=== PATIENT | female | born 1950 | race Caucasian/White ===

== ENCOUNTER 2016-11-23 10:34 | Outpatient (CLI) | payer MEDICARE, OTHER | END 2016-11-23 10:35 | disposition home or self-care (01) | DX: Z12.31 Encounter for screening mammogram for malignant neoplasm of breast (principal); Z80.3 Family history of malignant neoplasm of breast ==

== ENCOUNTER 2016-12-27 14:44 | Outpatient (CLI) | payer MEDICARE, OTHER | END 2016-12-27 14:45 | disposition home or self-care (01) | DX: E87.6 Hypokalemia (principal); R73.01 Impaired fasting glucose; I10 Essential (primary) hypertension; M35.3 Polymyalgia rheumatica ==

== ENCOUNTER 2017-11-04 08:00 | Outpatient (CLI) | payer MEDICARE, OTHER ==
[2017-11-04 18:58] LABS: BILIRUBIN,URINE NEGATIVE (NEGATIVE); GLUCOSE, URINE (UA) NEGATIVE (NEGATIVE); KETONES,URINE (UA) NEGATIVE (NEGATIVE); LEUKOCYTE ESTERASE, URINE TRACE (NEGATIVE); NITRITE,URINE NEGATIVE (NEGATIVE); OCCULT BLOOD,URINE NEGATIVE (NEGATIVE); PROTEIN,URINE NEGATIVE (NEGATIVE); UROBILINOGEN,URINE 0.2 (NORMAL) E.U./dL (NORMAL)
[2017-11-04 19:10] LABS: BACTERIA,URINE Few /HPF (None Seen); CLARITY,URINE CLEAR (CLEAR); RBC,URINE 0-5 /HPF (0-5); SQUAMOUS EPITHELIAL CELL,UR FEW Squamous (<= Few)
[2017-11-04 19:12] LABS: BASOPHILS % (AUTO) 0.2 %; EOSINOPHILS # (AUTO) 0.1 10^3/uL (0.0-0.7); EOSINOPHILS % (AUTO) 1.8 %; HGB - HEMOGLOBIN 14.9 g/dL (12.0-16.0); LYMPHOCYTES # (AUTO) 2.1 10^3/uL (1.5-3.5); LYMPHOCYTES % (AUTO) 26.5 %; MEAN CORPUSCULAR HEMOGLOBIN 29.9 pg (27.0-31.0); MEAN CORPUSCULAR HGB CONC 33.1 g/dL (32.0-36.0); MEAN CORPUSCULAR VOLUME 90.5 fL (81.0-99.0); MEAN PLATELET VOLUME 8.9 fL (7.9-10.8); MONOCYTES # (AUTO) 0.7 10^3/uL (0.0-1.0); MONOCYTES % (AUTO) 9.1 %; NEUTROPHILS # (AUTO) 4.8 10^3/uL (1.5-6.6); NEUTROPHILS % (AUTO) 62.4 %; PLT - PLATELET COUNT 262 10^3/uL (130-450); RED BLOOD COUNT 4.98 10^6/uL (4.20-5.40); RED CELL DISTRIBUTION WIDTH 13.7 % (12.0-15.0); WHITE BLOOD COUNT 7.7 x10^3/uL (4.8-10.8)
[2017-11-04 19:31] LABS: ALBUMIN 4.2 g/dL (3.2-5.5); ALBUMIN/GLOBULIN RATIO 1.4 (1.0-2.2); ALKALINE PHOSPHATASE 68 IU/L (42-121); ALT ALANINE AMINOTRANSFERASE 22 IU/L (10-60); AST ASPARTATE AMINOTRANSFERASE 20 IU/L (10-42); BUN - BLOOD UREA NITROGEN 25 mg/dL (6-20); CALCIUM 9.5 mg/dL (8.5-10.3); CARBON DIOXIDE - CO2 31 mmol/L (21-32); CHLORIDE 101 mmol/L (101-111); CHOL/HDL RATIO 2.7 (<4.4); CHOLESTEROL 175 mg/dL; CREATININE 0.6 mg/dL (0.4-1.0); GFR - MDRD 99 (>89); GLUCOSE 109 mg/dL (70-100); HDL CHOLESTEROL 64 mg/dL; LDL CHOLESTEROL,CALCULATED 92 mg/dL; LDL/HDL RATIO 1.4 (<4.4); SODIUM 140 mmol/L (135-145); TOTAL PROTEIN 7.1 g/dL (6.7-8.2); VLDL CHOLESTEROL 19 mg/dL
[2017-11-04 19:56] LABS: HB2 TOTAL 15.9 g/dL; HEMOGLOBIN A1C 0.67 g/dL
== END 2017-11-04 08:01 | disposition home or self-care (01) ==
LOC: LAB.WCP 08:00
PROVIDERS: ATTEND Family Medicine
DX: R60.0 Localized edema (principal); R73.01 Impaired fasting glucose; I10 Essential (primary) hypertension
CPT/HCPCS: 36415; 80053; 80061; 81001; 83036; 83721; 85025

== ENCOUNTER 2017-11-07 18:54 | Outpatient (CLI) | payer MEDICARE, OTHER ==
--- NOTE | 2017-11-08 16:32 | Ultrasound Report ---
EXAM: RIGHT LOWER EXTREMITY VENOUS ULTRASOUND EXAM DATE: 11/07/2017 08:28 PM. CLINICAL HISTORY: LEG EDEMA. COMPARISON: None. TECHNIQUE: Real-time sonographic vascular imaging was performed by the television anchor through the lower extremity utilizing both color-flow and Doppler spectral analysis. Multiple sales representative public utilities static selma ges were saved for review. FINDINGS: Common Femoral Vein (CFV): Normal. CFV-GSV Junction: Normal. Profunda Femoral Vein (PFV): Normal. Femoral Vein (FV) Prox: Normal. Femoral Vein (FV) Mid: Normal. Femoral Vein (FV) Dist: Normal. Popliteal Vein: Normal. Posterior Tibial Veins: Normal. Peroneal Veins: Normal. Other: Small fluid collection in the popliteal fossa measuring up to 3.8 cm is in keeping with a Bake rs cyst. IMPRESSION: No evidence for deep venous thrombosis. [facility] Referring Provider Line: [phone] SITE ID: [id number]
== END 2017-11-07 18:55 | disposition home or self-care (01) ==
LOC: DI 18:54
PROVIDERS: ATTEND Family Medicine
DX: R60.0 Localized edema (principal)

== ENCOUNTER 2018-01-06 10:28 | Outpatient (CLI) | payer MEDICARE, OTHER ==
--- NOTE | 2018-01-07 16:27 | Mammography Report ---
DIGITAL SCREENING MAMMOGRAM: 01/06/2018 CLINICAL INDICATION: A 67-year-old with family history of breast cancer for screening. COMPARISON: 10/2016, 10/2015, 10/2013, 10/2012, 09/2011, 06/2010. TECHNIQUE: Routine CC and MLO projections were obtained of the breasts. FINDINGS: Scattered fibroglandular tissue is present within the breasts. There are no dominant masses, suspicious microcalcifications, or secondary signs of malignancy. In comparison to the previous studies, there are no significant changes. ASSESSMENT: NO MAMMOGRAPHIC EVIDENCE OF MALIGNANCY. NO SIGNIFICANT INTERVAL CHANGES. RECOMMENDATION: Screening mammography is recommended annually. BIRADS category 1 - negative. STANDARD QUALIFYING STATEMENTS: 1. This examination was reviewed with the aid of Computed-Aided Detection (CAD). 2. A negative or benign imaging report should not delay biopsy if clinically suspicious findings are present. Consider surgical consultation if warranted. More than 5% of cancers are not identified by imaging. 3. Dense breasts may obscure an underlying neoplasm. TD: 01/07/2018 16:26
== END 2018-01-06 10:29 | disposition home or self-care (01) ==
LOC: DI.N 10:28
PROVIDERS: ATTEND Family Medicine
DX: Z12.31 Encounter for screening mammogram for malignant neoplasm of breast (principal); Z80.3 Family history of malignant neoplasm of breast
CPT/HCPCS: 77067

== ENCOUNTER 2018-07-16 11:10 | Outpatient (CLI) | payer MEDICARE, OTHER | END 2018-07-16 11:11 | disposition home or self-care (01) | LOC: DI 11:10 | PROVIDERS: ATTEND Family Medicine | DX: R00.2 Palpitations (principal) | CPT/HCPCS: 93306 ==

== ENCOUNTER 2019-02-04 15:32 | Outpatient (CLI) | payer MEDICARE, OTHER ==
--- NOTE | 2019-02-05 08:44 | Mammography Report ---
Reason: SCREENING MAMMO Procedure Date: 02/04/2019 Accession Number: [id number] / [id number] Procedure: MGN - Screening Mammo Dig Bilat CPT Code: FULL RESULT: EXAM: Screening Mammo Dig Bilat DATE: 02/04/2019 3:56 PM CLINICAL HISTORY: Screening encounter. Family history of breast cancer in a sister at the age of 50. TECHNIQUE: (B) - Bilateral CC and MLO views were obtained. COMPARISON: 01/06/2018 through 12/08/2013. PARENCHYMAL PATTERN: (D) - The breast(s) demonstrate(s) heterogeneously dense fibroglandular parenchyma. FINDINGS: There are typically benign vascular calcifications. There are no suspicious masses, calcifications, or areas of distortion. IMPRESSION: Benign findings. BI-RADS category 2. RECOMMENDATION: (ANNUAL) - Recommend routine annual screening mammography. BI-RADS CATEGORY: (2) - Benign Findings. STANDARD QUALIFYING STATEMENTS: 1. This examination was not reviewed with the aid of Computer-Aided Detection (CAD). 2. A negative or benign imaging report should not preclude biopsy if clinically suspicious findings are present. 3. Dense breasts may obscure an underlying neoplasm. 4. This examination was reviewed without the aid of 3D breast imaging (tomosynthesis).
== END 2019-02-04 15:33 | disposition home or self-care (01) ==
LOC: DI.N 15:32
DX: Z12.31 Encounter for screening mammogram for malignant neoplasm of breast (principal); Z80.3 Family history of malignant neoplasm of breast
CPT/HCPCS: 77067

== ENCOUNTER 2020-02-18 08:00 | Outpatient (CLI) | payer MEDICARE, OTHER ==
[2020-02-18 18:56] LABS: BASOPHILS % (AUTO) 0.6 %; EOSINOPHILS # (AUTO) 0.2 10^3/uL (0.0-0.7); EOSINOPHILS % (AUTO) 3.5 %; HGB - HEMOGLOBIN 16.5 g/dL (12.0-16.0); LYMPHOCYTES % (AUTO) 36.3 %; MEAN CORPUSCULAR HEMOGLOBIN 31.5 pg (27.0-31.0); MEAN CORPUSCULAR VOLUME 92.6 fL (81.0-99.0); MONOCYTES # (AUTO) 0.6 10^3/uL (0.0-1.0); MONOCYTES % (AUTO) 10.6 %; NEUTROPHILS # (AUTO) 2.6 10^3/uL (1.5-6.6); NEUTROPHILS % (AUTO) 48.6 %; PLT - PLATELET COUNT 239 10^3/uL (130-450); RED BLOOD COUNT 5.24 10^6/uL (4.20-5.40); RED CELL DISTRIBUTION WIDTH 13.5 % (12.0-15.0); WHITE BLOOD COUNT 5.4 x10^3/uL (4.8-10.8)
[2020-02-18 19:16] LABS: HB2 TOTAL 17.2 g/dL; HEMOGLOBIN A1C 0.68 g/dL; HEMOGLOBIN A1C % 5.8 % (4.6-6.2)
[2020-02-18 19:26] LABS: ALBUMIN 4.2 g/dL (3.2-5.5); ALBUMIN/GLOBULIN RATIO 1.4 (1.0-2.2); ALKALINE PHOSPHATASE 51 IU/L (42-121); ALT ALANINE AMINOTRANSFERASE 19 IU/L (10-60); AST ASPARTATE AMINOTRANSFERASE 21 IU/L (10-42); BILIRUBIN,TOTAL 1.5 mg/dL (0.2-1.0); BUN - BLOOD UREA NITROGEN 23 mg/dL (6-20); CHOL/HDL RATIO 3.2 (<4.4); CHOLESTEROL 214 mg/dL; CREATININE 0.6 mg/dL (0.4-1.0); CRP - C-REACTIVE PROTEIN < 1.0 mg/dL (0-1.0); HDL CHOLESTEROL 66 mg/dL; LDL CHOLESTEROL,CALCULATED 122 mg/dL; LDL/HDL RATIO 1.8 (<4.4); TOTAL PROTEIN 7.2 g/dL (6.7-8.2); VLDL CHOLESTEROL 26 mg/dL
[2020-02-18 19:30] LABS: CALCIUM 9.6 mg/dL (8.5-10.3); CARBON DIOXIDE - CO2 28 mmol/L (21-32); CHLORIDE 103 mmol/L (101-111); GLUCOSE 113 mg/dL (70-100); SODIUM 140 mmol/L (135-145)
[2020-02-19 12:04] LABS: HEPATITIS C ANTIBODY NON-REACTIVE (NON-REACTIVE)
== END 2020-02-18 23:59 | disposition home or self-care (01) ==
LOC: LAB.WCP 08:00
PROVIDERS: ATTEND Family Medicine
DX: I10 Essential (primary) hypertension (principal); E78.5 Hyperlipidemia, unspecified; R73.01 Impaired fasting glucose; M35.3 Polymyalgia rheumatica; Z11.59 Encounter for screening for other viral diseases
CPT/HCPCS: 36415; 80053; 80061; 83036; 83721; 84443; 85025; 85651; 86140; 86803

== ENCOUNTER 2020-02-19 14:26 | Outpatient (CLI) | payer MEDICARE, OTHER ==
[2020-02-19 14:27] LABS: ABNORMAL LYMPHS % (MANUAL) 0 %; BAND NEUTROPHILS % (MANUAL) 0 %
[2020-02-19 18:05] LABS: BASOPHILS % (AUTO) 0.8 %; EOSINOPHILS % (AUTO) 2.7 %; HGB - HEMOGLOBIN 15.2 g/dL (12.0-16.0); LYMPHOCYTES % (AUTO) 34.9 %; MEAN CORPUSCULAR HEMOGLOBIN 29.6 pg (27.0-31.0); MEAN CORPUSCULAR HGB CONC 32.3 g/dL (32.0-36.0); MEAN CORPUSCULAR VOLUME 91.4 fL (81.0-99.0); MEAN PLATELET VOLUME 11.1 fL (7.9-10.8); MONOCYTES % (AUTO) 9.7 %; NEUTROPHILS % (AUTO) 51.6 %; PLT - PLATELET COUNT 232 10^3/uL (130-450); RED BLOOD COUNT 5.14 10^6/uL (4.20-5.40); RED CELL DISTRIBUTION WIDTH 13.4 % (12.0-15.0)
[2020-02-19 20:11] LABS: EOSINOPHILS # (MANUAL) 0.3 10^3/uL (0-0.7); LYMPHOCYTES # (MANUAL) 1.4 10^3/uL (1.5-3.5); LYMPHOCYTES % (MANUAL) 24 %; MONOCYTES # (MANUAL) 0.6 10^3/uL (0.0-1.0)
[2020-02-19 20:12] LABS: DIFFERENTIAL COMMENT MANUAL DIFFERENTIAL; PLATELET ESTIMATE, MANUAL NORMAL (130-450,000) (NORMAL); PLATELET MORPHOLOGY NORMAL APPEARANCE (NORMAL); RBC MORPHOLOGY (MULTIPLE) NORMAL APPEARANCE (NORMAL)
[2020-02-23 17:44] LABS: JAK2 COMMENT NOT DETECTED; JAK2 SPECIMEN TYPE *WHOLW BLOOD
== END 2020-02-19 23:59 | disposition home or self-care (01) ==
LOC: LAB.WCP 14:26
PROVIDERS: ATTEND Family Medicine
DX: D75.1 Secondary polycythemia (principal)
CPT/HCPCS: 36415; 81270; 82668; 85025

== ENCOUNTER 2020-02-24 09:52 | Outpatient (CLI) | payer MEDICARE, OTHER ==
--- NOTE | 2020-02-24 12:48 | DEXA Report ---
Reason: POST MENOPAUSAL Procedure Date: 02/24/2020 Accession Number: [id number] / [id number] Procedure: DEX - Dexa Spine and/or Hip CPT Code: Final Report FULL RESULT: PROCEDURE: Dexa Spine and/or Hip INDICATIONS: POST MENOPAUSAL TECHNIQUE: Dual energy x-ray absorptiometry (DXA) was performed on a [employer]. Regions measured are the AP Spine, femoral neck, and if needed forearm. COMPARISON: None. FINDINGS: Lumbar Spine: Bone Mineral Density 1.43 g/cm/cm,T score 1.9, normal, Left femur total: Bone Mineral Density 0.92 g/cm/cm,T score -0.7, normal. Left Femoral Neck: Bone Mineral Density 0.99 g/cm/cm, T score -0.3, normal, (T score greater or equal to -1.0: NORMAL) (T score from -1.1 to -2.4: OSTEOPENIA) (T score less than or equal to -2.5 to: OSTEOPOROSIS) Impression: Normal bone mineral density at the lumbosacral spine and left femur measured. Patients with diagnosis of osteoporosis or osteopenia should have regular bone mineral density assessment. For those eligible for Medicare, routine testing is allowed once every 2 years. Testing frequency can be increased for patients who have rapidly progressing disease or for those who are receiving medical therapy to restore bone mass. Reviewed by: Gerardo Galarza MD on 02/24/2020 12:47 PM PDT Approved by: Gerardo Galarza MD on 02/24/2020 12:47 PM PDT Station ID: [id number]
== END 2020-02-24 09:53 | disposition home or self-care (01) ==
LOC: DI 09:52
PROVIDERS: ATTEND Family Medicine
DX: Z78.0 Asymptomatic menopausal state (principal)
CPT/HCPCS: 77080

== ENCOUNTER 2020-04-14 16:18 | Outpatient (CLI) | payer MEDICARE, OTHER ==
--- NOTE | 2020-04-14 17:32 | XRAY Report ---
PROCEDURE: Knee 3 View BILAT INDICATIONS: ARTHRITIS,BI LAT TECHNIQUE: 3 views of the bilateral knee(s) were acquired. COMPARISON: Knee x-ray 10/17/2015 FINDINGS: Bones: No fractures or dislocations. No suspicious bony lesions. Moderate bilateral medial patello femoral compartment narrowing. Minimal interval progression compared to 2016. No erosions. Minimal le ft lateral compartment narrowing. Small periarticular osteophytes are present. Soft tissues: Mild bilateral effusions. No suspicious soft tissue calcifications. IMPRESSION: Predominantly bilateral medial and patellofemoral compartment narrowing as above suggest jeremiah osteoarthritis. Reviewed by: Margret Camacho MD on 04/14/2020 5:31 PM PDT Approved by: Margret Camacho MD on 04/14/2020 5:31 PM PDT Station ID: [id number]
== END 2020-04-14 16:19 | disposition home or self-care (01) ==
LOC: DI.N 16:18
PROVIDERS: ATTEND Physician Assistant
DX: M17.0 Bilateral primary osteoarthritis of knee (principal)

== ENCOUNTER 2020-04-22 09:56 | Outpatient (CLI) | payer MEDICARE, OTHER ==
--- NOTE | 2020-04-25 09:21 | Mammography Report ---
BILATERAL DIGITAL SCREENING MAMMOGRAM 3D/2D: 04/22/2020 CLINICAL: Routine screening. Comparison is made to exams dated: 02/04/2019 mammogram, 01/06/2018 mammogram, 11/03/2016 mammogram, 2015 mammogram, 12/08/2013 mammogram, and 11/30/2013 mammogram - [facility]. The tiss ue of both breasts is heterogeneously dense. This may lower the sensitivity of mammography. No significant masses, calcifications, or other findings are seen in either breast. There has been no significant interval change. IMPRESSION: NEGATIVE There is no mammographic evidence of malignancy. A 1 year screening mammogram is recommended. This exam was interpreted at Station ID: [id number]. NOTE: For mammograms, a report in lay terms will be sent to the patient. Approximately 15% of breast malignancies will not be visualized mammographically. In the management of a palpable breast mass, a negative mammogram must not discourage biopsy of a clinically suspicious lesion. Electronically Signed By: Kale Gates M.D., jr/laure:04/22/2020 12:36:46 ACR BI-RADS Category 1: Negative 3341F PARENCHYMAL PATTERN: (D) - The breast(s) demonstrate(s) heterogeneously dense fibroglandular shanta tinoco. BI-RADS CATEGORY: (1) - 1 RECOMMENDATION: (ANNUAL) - Recommend routine annual screening mammography. [id number] 1 year screening LATERALITY: (B)
== END 2020-04-22 09:57 | disposition home or self-care (01) ==
LOC: DI 09:56
DX: Z12.31 Encounter for screening mammogram for malignant neoplasm of breast (principal)
CPT/HCPCS: 77063; 77067

== ENCOUNTER 2020-08-17 13:37 | Outpatient (CLI) | payer MEDICARE, OTHER ==
--- NOTE | 2020-08-17 13:59 | XRAY Report ---
PROCEDURE: Chest 2 View X-Ray INDICATIONS: SHORTNESS OF BREATH TECHNIQUE: 2 view(s) of the chest. COMPARISON: None. FINDINGS: Surgical changes and devices: None. Lungs and pleura: No pleural effusions or pneumothorax. Lungs are clear. Mediastinum: Mediastinal contours are normal. Heart size is normal. Bones and chest wall: No suspicious bony abnormalities. Soft tissues appear unremarkable. IMPRESSION: No acute cardiopulmonary process demonstrated radiographically. Reviewed by: Kale Gates MD on 08/17/2020 12:58 PM [facility] Approved by: Kale Gates MD on 08/17/2020 12:58 PM [facility] Station ID: [id number]
== END 2020-08-17 23:59 | disposition home or self-care (01) ==
LOC: DI.WCP 13:37
PROVIDERS: ATTEND Family Medicine
DX: R06.02 Shortness of breath (principal); R06.2 Wheezing

== ENCOUNTER 2020-09-12 07:16 | Outpatient (CLI) | payer MEDICARE, OTHER ==
--- NOTE | 2020-09-12 11:09 | XRAY Report ---
PROCEDURE: Foot 3 View RT INDICATIONS: OSTEOARTHRITIS OF MIDTARSAL JOINT OF R FOOT TECHNIQUE: 3 views of the foot were acquired. COMPARISON: None FINDINGS: Bones: No fractures or dislocations. No suspicious bony lesions. Mild midfoot osteoarthritis. Soft tissues: No tibiotalar joint effusion. Achilles tendon appears normal. IMPRESSION: 1. No acute osseous lesion. If there are persistent symptoms or continued clinical concern for pathol ogy, then repeat plain film radiographs (7-10 days) or advanced imaging (CT, MR, bone scan) should be considered for further evaluation. 2. Mild midfoot osteoarthritis. Reviewed by: Soraya Brown MD, PhD on 09/12/2020 11:07 AM PST Approved by: Soraya Brown MD, PhD on 09/12/2020 11:07 AM PST Station ID: [id number]
== END 2020-09-12 23:59 | disposition home or self-care (01) ==
LOC: DI.N 07:16
PROVIDERS: ATTEND Orthopaedic Surgery
DX: M19.071 Primary osteoarthritis, right ankle and foot (principal)

== ENCOUNTER 2021-02-08 09:35 | Outpatient (CLI) | payer MEDICARE, OTHER ==
[2021-02-08 11:54] LABS: BASOPHILS % (AUTO) 0.7 %; EOSINOPHILS # (AUTO) 0.2 10^3/uL (0.0-0.7); EOSINOPHILS % (AUTO) 3.5 %; HCT - HEMATOCRIT 48.7 % (37.0-47.0); HGB - HEMOGLOBIN 15.5 g/dL (12.0-16.0); LYMPHOCYTES # (AUTO) 1.7 10^3/uL (1.5-3.5); LYMPHOCYTES % (AUTO) 29.3 %; MEAN CORPUSCULAR HEMOGLOBIN 29.6 pg (27.0-31.0); MEAN CORPUSCULAR HGB CONC 31.8 g/dL (32.0-36.0); MEAN CORPUSCULAR VOLUME 93.1 fL (81.0-99.0); MEAN PLATELET VOLUME 11.2 fL (7.9-10.8); MONOCYTES # (AUTO) 0.6 10^3/uL (0.0-1.0); MONOCYTES % (AUTO) 9.6 %; NEUTROPHILS # (AUTO) 3.3 10^3/uL (1.5-6.6); NEUTROPHILS % (AUTO) 56.6 %; PLT - PLATELET COUNT 224 10^3/uL (130-450); RED BLOOD COUNT 5.23 10^6/uL (4.20-5.40); RED CELL DISTRIBUTION WIDTH 13.3 % (12.0-15.0); WHITE BLOOD COUNT 5.7 x10^3/uL (4.8-10.8)
[2021-02-08 12:19] LABS: ESTIMATED AVERAGE GLUCOSE 117 mg/dL (70-100); HEMOGLOBIN A1c% 5.7 % (4.27-6.07)
[2021-02-08 12:20] LABS: ALBUMIN/GLOBULIN RATIO 1.4 (1.0-2.2); ALKALINE PHOSPHATASE 65 IU/L (42-121); ALT ALANINE AMINOTRANSFERASE 20 IU/L (10-60); AST ASPARTATE AMINOTRANSFERASE 21 IU/L (10-42); BILIRUBIN,TOTAL 0.9 mg/dL (0.2-1.0); BUN - BLOOD UREA NITROGEN 29 mg/dL (6-20); CARBON DIOXIDE - CO2 30 mmol/L (21-32); CHLORIDE 100 mmol/L (101-111); CHOL/HDL RATIO 3.8 (<4.4); CHOLESTEROL 205 mg/dL; CREATININE 0.6 mg/dL (0.4-1.0); GFR - MDRD 98 (>89); GLUCOSE 118 mg/dL (70-100); HDL CHOLESTEROL 54 mg/dL; LDL CHOLESTEROL,CALCULATED 127 mg/dL; LDL/HDL RATIO 2.4 (<4.4); POTASSIUM 4.2 mmol/L (3.5-5.0); SODIUM 141 mmol/L (135-145); TOTAL PROTEIN 6.9 g/dL (6.7-8.2); TRIGLYCERIDES 122 mg/dL; VLDL CHOLESTEROL 24 mg/dL
== END 2021-02-08 23:59 | disposition home or self-care (01) ==
LOC: LAB.WCP 09:35
PROVIDERS: ATTEND Family Medicine
DX: I10 Essential (primary) hypertension (principal); E78.5 Hyperlipidemia, unspecified; R73.01 Impaired fasting glucose
CPT/HCPCS: 36415; 80053; 80061; 83036; 83721; 85025

== ENCOUNTER 2021-05-11 09:06 | Outpatient (CLI) | payer MEDICARE, OTHER ==
--- NOTE | 2021-05-12 10:34 | Mammography Report ---
BILATERAL DIGITAL SCREENING MAMMOGRAM 3D/2D: 05/11/2021 CLINICAL: Family history of breast cancer. Routine screening. Comparison is made to exams dated: 04/22/2020 mammogram, 02/04/2019 mammogram, 01/06/2018 mammogram, 2016 mammogram, 10/17/2015 mammogram, and 12/08/[address] ultrasound - [facility]. The tis jude of both breasts is heterogeneously dense. This may lower the sensitivity of mammography. No significant masses, calcifications, or other findings are seen in either breast. There has been no significant interval change. IMPRESSION: NEGATIVE There is no mammographic evidence of malignancy. A 1 year screening mammogram is recommended. This exam was interpreted at Station ID: [id number]. NOTE: For mammograms, a report in lay terms will be sent to the patient. Approximately 15% of breast malignancies will not be visualized mammographically. In the management of a palpable breast mass, a negative mammogram must not discourage biopsy of a clinically suspicious lesion. Electronically Signed By: Ananda Loja M.D. ddmora/laure:05/11/2021 12:07:12 ACR BI-RADS Category 1: Negative 3341F PARENCHYMAL PATTERN: (D) - The breast(s) demonstrate(s) heterogeneously dense fibroglandular shanta tinoco. BI-RADS CATEGORY: (1) - 1 RECOMMENDATION: (ANNUAL) - Recommend routine annual screening mammography. [id number] 1 year screening LATERALITY: (B)
== END 2021-05-11 09:07 | disposition home or self-care (01) ==
LOC: DI.N 09:06
DX: Z12.31 Encounter for screening mammogram for malignant neoplasm of breast (principal); Z80.3 Family history of malignant neoplasm of breast

== ENCOUNTER 2021-08-15 11:00 | Outpatient (CLI) | payer MEDICARE, OTHER ==
[2021-08-15 18:15] LABS: BASOPHILS % (AUTO) 0.8 %; EOSINOPHILS # (AUTO) 0.1 10^3/uL (0.0-0.7); EOSINOPHILS % (AUTO) 2.8 %; HCT - HEMATOCRIT 47.5 % (37.0-47.0); HGB - HEMOGLOBIN 15.5 g/dL (12.0-16.0); LYMPHOCYTES # (AUTO) 1.5 10^3/uL (1.5-3.5); LYMPHOCYTES % (AUTO) 30.2 %; MEAN CORPUSCULAR HEMOGLOBIN 29.6 pg (27.0-31.0); MEAN CORPUSCULAR HGB CONC 32.6 g/dL (32.0-36.0); MEAN CORPUSCULAR VOLUME 90.6 fL (81.0-99.0); MEAN PLATELET VOLUME 10.7 fL (7.9-10.8); MONOCYTES # (AUTO) 0.4 10^3/uL (0.0-1.0); MONOCYTES % (AUTO) 8.7 %; NEUTROPHILS # (AUTO) 2.9 10^3/uL (1.5-6.6); NEUTROPHILS % (AUTO) 57.3 %; PLT - PLATELET COUNT 245 10^3/uL (130-450); RED BLOOD COUNT 5.24 10^6/uL (4.20-5.40); RED CELL DISTRIBUTION WIDTH 13.2 % (12.0-15.0); WHITE BLOOD COUNT 5.1 x10^3/uL (4.8-10.8)
[2021-08-15 18:26] LABS: ALBUMIN/GLOBULIN RATIO 1.4 (1.0-2.2); BILIRUBIN,TOTAL 1.3 mg/dL (0.2-1.0); CALCIUM 9.2 mg/dL (8.5-10.3); CREATININE 0.6 mg/dL (0.4-1.0); TOTAL PROTEIN 6.8 g/dL (6.7-8.2)
[2021-08-15 18:39] LABS: THYROID STIMULATING HORMONE 2.37 uIU/mL (0.34-5.60)
== END 2021-08-15 23:59 | disposition home or self-care (01) ==
LOC: LAB.WCP 11:00
PROVIDERS: ATTEND Family Medicine
DX: R07.89 Other chest pain (principal)
CPT/HCPCS: 36415; 80053; 84443; 84484; 85025

== ENCOUNTER 2021-09-10 17:24 | Outpatient (CLI) | payer MEDICARE, OTHER | END 2021-09-10 17:25 | disposition critical access hospital (66) | LOC: EMS 17:24 | DX: S01.01XA Laceration without foreign body of scalp, initial encounter (principal); W18.30XA Fall on same level, unspecified, initial encounter; Y92.009 Unspecified place in unspecified non-institutional (private) residence as the place of occurrence of the external cause | CPT/HCPCS: A0425; A0429 ==

== ENCOUNTER 2021-09-10 17:49 | Emergency (ER) | payer MEDICARE, OTHER ==
[2021-09-10] MEDS ORDERED: TETANUS/DIPHTHERIA/PERTUSSIS 0.5 ML SYRINGE IM ONE (17:55)
--- NOTE | 2021-09-10 17:57 | ED Physician Documentation ---
PD HPI Fall - Stated complaint Stated Complaint: GLF/HEAD LAC - History obtained from History obtained from: Patient, EMS - History of Present Illness Mechanism of injury: Tripped Fall distance: Standing position Where injury occurred: Home Timing - onset: How many hours ago (1) Injury(ies) location: Head (forehead laceration) Pain level max: 3 Pain level now: 2 Quality of pain: Pain, Aching, Dull Associated symptoms: Neck pain (mild). No: LOC, AMS, Amnesia, Nasal drainage, Weakness Symptoms improve with: Rest Worsens with: Movement, Palpation Contributing factors: No: Anticoagulated, Intoxicated - Additional information Additional information: 71-year-old female presents after a trip and fall in her yard today. Caused a laceration to the forehead and bridge of her nose. No neck or back pain. No numbness or tingling. Mild headache, 1 out of 10. Does not take any blood thinners. Unknown last tetanus Review of Systems Constitutional: denies: Fever, Chills Cardiac: denies: Chest pain / pressure Respiratory: denies: Cough GI: denies: Vomiting, Diarrhea Skin: denies: Rash Musculoskeletal: denies: Neck pain, Back pain Neurologic: denies: Focal weakness, Numbness, Head injury PD PAST MEDICAL HISTORY - Past Medical History Past Medical History: Yes Cardiovascular: Hypertension, High cholesterol Respiratory: None Endocrine/Autoimmune: None GI: None : None HEENT: None Psych: None, Post traumatic stress disorder Musculoskeletal: Osteoarthritis Derm: Other - Past Surgical History General: Appendectomy, 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 HEENT: Tonsil/Adenoidectomy - Present Medications Home Medications: Ambulatory Orders Medication Instructions Recorded Confirmed Aspirin [Adult Low Dose Aspirin EC] 81 mg PO DAILY 12/26/15 09/10/21 Calcium Carbonate/Vitamin D3 600 mg PO DAILY 12/26/15 09/10/21 [Calcium 600 + Vit D 400 Tablet] Loratadine 10 mg PO DAILY 12/26/15 09/10/21 Magnesium 400 mg PO DAILY 12/26/15 09/10/21 Simvastatin 40 mg PO DAILY 12/26/15 09/10/21 hydroCHLOROthiazide 25 mg PO DAILY 12/26/15 09/10/21 [Hydrochlorothiazide] Lactobacillus Combination No.4 2 cap PO DAILY 01/09/22 01/09/22 [Probiotic] Mecobalamin [B-12] 1 tab PO DAILY PM 09/10/21 09/10/21 Metoprolol Succinate [Kapspargo 25 mg PO DAILY 09/10/21 09/10/21 Sprinkle] Potassium Chloride [Klor-Con 10] 30 meq PO BID 09/10/21 09/10/21 cephALEXin [Keflex] 500 mg PO Q6H #28 cap 09/10/21 - Allergies Allergies/Adverse Reactions: Allergies Allergy/AdvReac Type Severity Reaction Status Date / Time Sulfa (Sulfonamide Allergy Rash Verified 09/10/21 17:57 Antibiotics) PD ED PE NORMAL - Vitals Vital signs reviewed: Yes - General General: Alert and oriented X 3, No acute distress, Well developed/nourished - HEENT HEENT: PERRL, EOMI, Ears normal, Pharynx benign, Other (2 cm laceration vertical down the nose. A 4 cm laceration, L-shaped above the left eye. On the forehead. No palpable skull fractures. No tenderness around the orbits. 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, No motor deficit, No sensory deficit, Normal speech Eye Opening: Spontaneous Motor: Obeys Commands Verbal: Oriented GCS Score: 15 - Psych Psych: Normal mood, Normal affect Results - Vitals Vitals: Vital Signs - 24 hr 09/10/21 09/10/21 17:55 19:51 Temperature 37.0 C Heart Rate 86 78 Respiratory 16 18 Rate Blood Pressure 153/67 H 152/92 H O2 Saturation 95 99 Oxygen O2 Source Room air Procedures - Laceration (location) forehead Length in cm: 4 Wound type: Curved, Irregular, Flap, Into subcut fat, Clean Neurovascular status: Sensory intact, Motor intact, Vascular intact Anesthesia: Lidocaine 1% with epi Wound preparation: Irrigated copiously NS, Wound explored, To the base Skin layer closure: Nylon, Interrupted, Size #-0 - enter number (5), Sutures - enter # (7) Other: Patient tolerated well, No complications, Neurovascular intact, Dressing applied, Tetanus booster given nasal Length in cm: 2 Wound type: Linear, Into subcut fat, Clean Neurovascular status: Sensory intact, Motor intact, Vascular intact Anesthesia: Lidocaine 1% with epi Wound preparation: Irrigated copiously NS, Wound explored, To the base Skin layer closure: Nylon, Size #-0 - enter number (5), Sutures - enter # (3) Other: Patient tolerated well, No complications, Neurovascular intact, Dressing applied, Tetanus booster given PD MEDICAL DECISION MAKING - ED course Complexity details: reviewed results, re-evaluated patient, considered differential, d/w patient ED course: Given the patient's age and mechanism, a CT scan of the head and cervical spine were performed. These are negative. The cervical collar was removed after the CT scan was read. The lacerations were repaired after thorough irrigation. Patient tolerated well. As these were dirty wounds, we will place on Keflex for home. Tetanus is up-to-date. Warnings of infection and instructions on wound care given at bedside. Also counseled on how to minimize scarring. Patient counseled regarding signs and symptoms for which I believe and urgent re- evaluation would be necessary. Patient with good understanding of and agreement to plan and is comfortable going home at this time This document was made in part using voice recognition software. While efforts are made to proofread this document, sound alike and grammatical errors may occur. Departure - Departure Disposition: 01 Home, Self Care Clinical Impression: Facial laceration Qualifiers: Encounter type: initial encounter Qualified Code(s): S01.81XA - Laceration without foreign body of other part of head, initial encounter Nasal laceration Qualifiers: Encounter type: initial encounter Qualified Code(s): S01.21XA - Laceration without foreign body of nose, initial encounter Condition: Good Instructions: ED Laceration Facial Sutr Tape Follow-Up: Cristopher Blanco DO [Primary Care Provider] - (in 7-10 days for suture removal ) Prescriptions: cephALEXin [Keflex] 500 mg PO Q6H #28 cap Comments: [facility] Take all antibiotics until gone. Keep the wound clean. The sutures will need to be removed in about 7 to 10 days with your doctor. Your CT scans did not show any acute abnormalities. You can use Motrin or Tylenol as needed for pain. Return for redness, swelling or drainage from the wounds. Discharge Date/Time: 09/10/21 19:51
--- NOTE | 2021-09-10 18:32 | CT Report ---
PROCEDURE: HEAD WO INDICATIONS: fall, head injury TECHNIQUE: Noncontrast 4.5 mm thick angled axial sections acquired from the foramen magnum to the vertex. For r adiation dose reduction, the following was used: automated exposure control, adjustment of mA and/or kV according to patient size. COMPARISON: None. FINDINGS: Image quality: Excellent. CSF spaces: Basal cisterns are patent. No extra-axial fluid collections. Ventricles are normal in size and shape. Remote right-sided aneurysm clipping. Brain: Chronic encephalomalacia, right lateral frontal region, in the general vicinity of the aneury sm clip. No midline shift. No intracranial masses or hemorrhage. Venegas-white matter interface is nor mal. Skull and face: Calvarium and visualized facial bones are intact, without suspicious lesions. Remote right temporal craniotomy. Sinuses: Visualized sinuses and mastoids are clear. IMPRESSION: 1. Remote aneurysm clipping with associated encephalomalacia in the right frontal lobe. 2. No evidence of acute stroke, hemorrhage, or mass. Reviewed by: Fernando Carmona MD on 09/10/2021 6:30 PM PST Approved by: Fernando Carmona MD on 09/10/2021 6:30 PM PST Station ID: [id number]
--- NOTE | 2021-09-10 18:35 | CT Report ---
PROCEDURE: CERVICAL SPINE WO INDICATIONS: fall, head injury TECHNIQUE: Noncontrast 3 mm thick sections acquired from the skull base to the T4 level. Sagittal and coronal r eformats were then constructed. For radiation dose reduction, the following was used: automated exp osure control, adjustment of mA and/or kV according to patient size. COMPARISON: None. FINDINGS: Image quality: Excellent. Bones: No fractures or dislocations. Visualized superior ribs are intact. Moderately severe cervic al spondylosis with severe chronic disc height loss at C5-C6 and C6-C7, with posterior disc/osteophyt e at both of these levels and canal stenosis, which is at least moderate and possibly severe at C6-C7 . There is marked left facet arthropathy at C1-C2 and severe left facet arthropathy at C3-C4. Soft tissues: Prevertebral soft tissues are normal in thickness. No paravertebral hematomas. No ap ical pneumothoraces. IMPRESSION: 1. No evidence of acute cervical fracture or dislocation. 2. Cervical spondylosis with at least moderate and possibly severe canal stenosis at C6-C7 and severe upper cervical left facet arthropathy. Reviewed by: Fernando Carmona MD on 09/10/2021 6:33 PM PST Approved by: Fernando Carmona MD on 09/10/2021 6:33 PM PST Station ID: [id number]
[2021-09-10] MEDS ORDERED: LIDOCAINE 1%-EPI 1:100000 20 ML MDV SUBQ STA (18:48)
[2021-09-10] MEDS ORDERED: cephALEXin 250 MG CAPSULE PO STA (19:18)
[2021-09-10 19:53] VITALS: BP 152/92
== END 2021-09-10 19:51 | disposition home or self-care (01) ==
LOC: EDUNIT# → ED 17:49
DX: S01.81XA Laceration without foreign body of other part of head, initial encounter (principal); S01.21XA Laceration without foreign body of nose, initial encounter; W01.10XA Fall on same level from slipping, tripping and stumbling with subsequent striking against unspecified object, initial encounter; Y92.007 Garden or yard of unspecified non-institutional (private) residence as the place of occurrence of the external cause; I10 Essential (primary) hypertension; Z23 Encounter for immunization
CPT/HCPCS: 12014; 70450; 72125; 90471; 90715; 99283; 99284; A9270

== ENCOUNTER 2021-09-21 10:43 | Outpatient (CLI) | payer MEDICARE, OTHER ==
--- NOTE | 2021-09-21 11:17 | CARDIAC PROCEDURE NOTE ---
Stress Test Report Service Date: 09/21/21 Service Time: 11:00 Ordering Provider: Cristopher Blanco D.O. Indication for Test: Assess for inducible cardiac ischemia. Significant Medical History: -Enriqueta is referred for a treadmill stress echocardiogram today, after recently reporting to her primary provider (Dr Blanco) that she was experiencing some chest discomfort, usually in the morning. At the clinic visit an EKG was interpreted as normal and a troponin level was drawn that was within normal limits. Enriqueta described the sensation as being "gas-like" and relieved with belching; subsequently she observed the discomfort to be less evident to almost non-existent with initiation of an anti-acid medication (she thinks omeprazole) and avoidance of carbonated beverages. 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 She took over this task from her a few months ago due to his deteriorating health and actually feels that her conditioning has improved since adding this daily regular activity. She has never had the chest discomfort with this or any other physical activity. -She reports being diagnosed with supraventricular tachycardia by ambulatory rhythm monitoring in 2019 with symptom suppression by metoprolol. She typically takes this medication in the evening and did not take it last night. She had a diagnostic echocardiogram in 2018 here that was interpreted as being fully normal. Cardiac Risk Factors: She has longstanding (35-40 years) treated hypertension, treated hyperlipidemia and notes a family history of heart disease in her mother. She has not been diagnosed with diabetes and has never been a tobacco smoker. Type of Stress Test: ETT with Echocardiography Procedure: -Exercise Treadmill Test- After signing informed consent, the patient underwent resting echo imaging and then performed treadmill exercise using a Modified Dave protocol. The patient exercised for 8 minutes 58 seconds and achieved a peak heart rate of 152 (103 percent predicted maximum heart rate for age), and an estimated workload of 4.6 METS. The test was terminated due to fatigue/shortness of breath, after patient achieved her target heart rate. Resting heart rate: 82 Peak heart rate: 152 Normal response to exercise. Resting BP: 140/74 Peak BP: 225/66 Modestly hypertensive systolic BP response to exercise, with normal decrease in diastolic BP. Rhythm during exercise: Sinus rhythm throughout. Symptoms: She denied experiencing any chest discomfort or other cardiac symptoms. EKG at rest showed normal sinus rhythm, fully normal in all aspects. EKG at peak stress showed J-point depression with upsloping ST segments NOT clearly meeting criteria for ischemia. In Recovery heart rate normally returned to baseline level; blood pressure decrease more slowly, with final reading 193/67 at 7 minutes. Echo imaging performed at rest and with stress will be reported separately. Benny Pérez MD, was present throughout this treadmill stress study and supervised it in its entirety. Summary: 1) Exercise tolerance well above average for age as evidenced by JOHN of -61%. 2) Normal resting EKG. 3) Adequate level of exercise was achieved on this treadmill stress test. 4) Mildly hypertensive systolic BP response to exercise. 5) No ischemic changes by EKG criteria were seen at peak stress. 6) Echo image interpretation reveals normal left ventricular size and systolic function, with appropriate hyperdynamic augmentation of all segments with exercise, indicating no evidence of prior infarct or inducible ischemia. See separate report for more details. PRELIMINARY CONCLUSIONS: 1) Low risk treadmill stress echocardiogram results with no report of chest discomfort and no EKG or echocardiographic evidence of inducible ischemia. 2) We recommended that she continue to monitor the adequacy of her blood pressure control.
== END 2021-09-21 10:44 | disposition home or self-care (01) ==
LOC: DI 10:43
PROVIDERS: ATTEND Family Medicine
DX: R07.89 Other chest pain (principal); I10 Essential (primary) hypertension; E78.5 Hyperlipidemia, unspecified; Z82.49 Family history of ischemic heart disease and other diseases of the circulatory system
CPT/HCPCS: 93350

== ENCOUNTER 2021-10-03 09:42 | Day surgery (SDC) | payer MEDICARE, OTHER ==
[2021-10-03] MEDS ORDERED: LACTATED RINGERS 1,000 ML IV ONE ×2 (09:53→11:42)
--- NOTE | 2021-10-03 10:14 | ANESTHESIA ---
Pre-Anesthesia VS, & Labs - Diagnosis family history of colon CA - Procedure colonoscopy Height: 5 ft 2 in Weight (kg): 81.8 kg Body Mass Index: 33.0 BMI Classification: Obese - NPO >8 hours - Is Patient ?: Not Applicable Home Medications and Allergies Home Medications: Ambulatory Orders Calcium Carbonate [Calcium] 600 mg PO DAILY 09/29/21 Cholecalciferol [Vitamin D3] 25 mcg PO DAILY 09/29/21 Glucos Sul 2Kcl/MSM/Chond/C/Mn [Glucosamine Chondroitin Cap] 1 each PO DAILY 09/29/21 Ibuprofen [Motrin] 600 mg PO Q6H PRN 09/29/21 Multivitamin 1 each PO DAILY 09/29/21 Omeprazole 20 mg PO DAILY 09/29/21 Vit A/Vit C/Vit E/Zinc/Copper [Preservision Areds Softgel] 1 each PO DAILY 09/29/21 Loratadine 10 mg PO DAILY PRN 12/26/15 Magnesium 400 mg PO DAILY 12/26/15 Simvastatin 40 mg PO DAILY 12/26/15 hydroCHLOROthiazide [Hydrochlorothiazide] 25 mg PO DAILY 12/26/15 Lactobacillus Combination No.4 [Probiotic] 2 cap PO DAILY 09/10/21 Metoprolol Succinate [Kapspargo Sprinkle] 25 mg PO DAILY 09/10/21 Potassium Chloride [Klor-Con 10] 30 meq PO BID 09/10/21 Calcium Carbonate [Calcium] 600 mg PO DAILY 09/29/21 Cholecalciferol [Vitamin D3] 25 mcg PO DAILY 09/29/21 Glucos Sul 2Kcl/MSM/Chond/C/Mn [Glucosamine Chondroitin Cap] 1 each PO DAILY 09/29/21 Ibuprofen [Motrin] 600 mg PO Q6H PRN 09/29/21 Multivitamin 1 each PO DAILY 09/29/21 Omeprazole 20 mg PO DAILY 09/29/21 Vit A/Vit C/Vit E/Zinc/Copper [Preservision Areds Softgel] 1 each PO DAILY 09/29/21 Allergies/Adverse Reactions: Allergies Allergy/AdvReac Type Severity Reaction Status Date / Time Sulfa (Sulfonamide Allergy Rash Verified 09/10/21 17:57 Antibiotics) Anes History & Medical History - Anesthetic History Anesthesia Complications: reports: No previous complications Family history of Anesthesia Complications: Denies Family history of Malignant Hyperthermia: Denies - Medical History Cardiovascular: reports: Hypertension, High cholesterol, Arrhythmia Pulmonary: reports: None Gastrointestinal: reports: GERD, Diverticulitis Urinary: reports: Incontinence Musculoskeletal: reports: Osteoarthritis Endocrine/Autoimmune: reports: None Skin: reports: None - Surgical History General: reports: Appendectomy, Colonoscopy Eyes Ears Nose Throat (EENT): reports: Cataracts, Tonsil/Adenoidectomy Gynecologic: reports: Oophrectomy Neurologic: reports: Other Exam General: Alert, Oriented x3, Cooperative Dental: Dentures full Upper, Dentures full Lower, Other (dentures removed) Mouth Openin Fingerbreadth Neck Mobility: Normal Mallampati classification: I Thyromental Distance: 4-6 cm Respiratory: Lungs clear Cardiovascular: Regular rate Plan Anesthesia Type: Total IV Consent for Procedure(s) Verified and Reviewed: Yes Code Status: Attempt Resuscitation ASA classification: 2-Mild systemic disease Is this case an emergency?: No
[2021-10-03] MEDS ORDERED: PROPOFOL 500 MG/50 ML 500 MG/50 ML VIAL ONE (11:47)
[2021-10-03 12:09] VITALS: BP 128/72
--- NOTE | 2021-10-03 12:56 | ANESTHESIA POST OP EVALUATION ---
Anesthesia Post Eval - Post Anesthesia Eval Vitals: Last Vital Signs Temp 36.9 C 10/03/21 11:42 Pulse 70 10/03/21 12:07 Resp 16 10/03/21 12:07 BP 128/72 10/03/21 12:07 Pulse Ox 93 10/03/21 12:07 CV Function Including HR & BP: Stable Pain Control: Satisfactory Nausea & Vomiting: Negative Mental Status: Baseline Respiratory Status: Airway Patent Hydration Status: Satisfactory Anesthesia Complications: None
== END 2021-10-03 09:43 | disposition home or self-care (01) ==
LOC: SDS 09:42
PROVIDERS: ATTEND Surgery
PROC: 0DBN8ZZ Excision of Sigmoid Colon, Via Natural or Artificial Opening Endoscopic (ICD-10-PCS; principal; 2021-10-03 10:45)
DX: Z12.11 Encounter for screening for malignant neoplasm of colon (principal); K63.5 Polyp of colon; K57.30 Diverticulosis of large intestine without perforation or abscess without bleeding; K64.8 Other hemorrhoids; I47.1 Supraventricular tachycardia; K64.4 Residual hemorrhoidal skin tags; E66.9 Obesity, unspecified; Z80.0 Family history of malignant neoplasm of digestive organs; Z68.33 Body mass index [BMI] 33.0-33.9, adult
CPT/HCPCS: 45380; J7120

== ENCOUNTER 2021-11-14 14:24 | Outpatient (CLI) | payer MEDICARE, OTHER ==
[2021-11-14 20:58] LABS: ESTIMATED AVERAGE GLUCOSE 123 mg/dL (70-100); HEMOGLOBIN A1c% 5.9 % (4.27-6.07)
[2021-11-16 15:37] LABS: ALBUMIN 3.9 g/dL (3.8-4.8); ALPHA 1 GLOBULIN 0.3 g/dL (0.2-0.3); ALPHA 2 GLOBULIN 0.9 g/dL (0.5-0.9); BETA 1 GLOBULIN 0.5 g/dL (0.4-0.6); BETA 2 GLOBULIN 0.3 g/dL (0.2-0.5); GAMMA GLOBULIN 0.6 g/dL (0.8-1.7)
== END 2021-11-14 14:25 | disposition home or self-care (01) ==
LOC: LAB.N 14:24
PROVIDERS: ATTEND Family Medicine
DX: G62.9 Polyneuropathy, unspecified (principal); R73.01 Impaired fasting glucose
CPT/HCPCS: 36415; 83036; 84155; 84165; 84425; 86140

== ENCOUNTER 2022-05-16 13:57 | Outpatient (CLI) | payer MEDICARE, OTHER ==
[2022-05-16 15:12] LABS: INR 1.2 (0.8-1.2)
[2022-05-16 15:20] LABS: PARTIAL THROMBOPLASTIN TIME 32.9 secs (24.9-33.3)
[2022-05-17 05:10] LABS: AFP SERUM TUMOR MARKER 3.7 ng/mL (0.0-9.2)
== END 2022-05-16 13:58 | disposition home or self-care (01) ==
LOC: LAB 13:57
PROVIDERS: ATTEND Physician Assistant
DX: K76.89 Other specified diseases of liver (principal); R91.8 Other nonspecific abnormal finding of lung field; N28.89 Other specified disorders of kidney and ureter
CPT/HCPCS: 36415; 82105; 85610; 85730; 86301

== ENCOUNTER 2022-05-25 08:10 | Outpatient (CLI) | payer MEDICARE, OTHER ==
[2022-05-25] MEDS ORDERED: LACTATED RINGERS 1,000 ML IV ONE ×2 (08:15→10:47)
[2022-05-25 08:56] LABS: BASOPHILS % (AUTO) 0.3 %; EOSINOPHILS # (AUTO) 0.1 10^3/uL (0.0-0.7); EOSINOPHILS % (AUTO) 1.2 %; HCT - HEMATOCRIT 44.7 % (37.0-47.0); HGB - HEMOGLOBIN 14.6 g/dL (12.0-16.0); LYMPHOCYTES % (AUTO) 15.6 %; MEAN CORPUSCULAR HEMOGLOBIN 28.5 pg (27.0-31.0); MEAN CORPUSCULAR HGB CONC 32.7 g/dL (32.0-36.0); MEAN CORPUSCULAR VOLUME 87.1 fL (81.0-99.0); MEAN PLATELET VOLUME 10.5 fL (7.9-10.8); MONOCYTES # (AUTO) 0.5 10^3/uL (0.0-1.0); MONOCYTES % (AUTO) 7.1 %; NEUTROPHILS % (AUTO) 75.5 %; PLT - PLATELET COUNT 201 10^3/uL (130-450); RED BLOOD COUNT 5.13 10^6/uL (4.20-5.40); RED CELL DISTRIBUTION WIDTH 14.3 % (12.0-15.0); WHITE BLOOD COUNT 6.6 x10^3/uL (4.8-10.8)
[2022-05-25 08:57] LABS: INR 1.2 (0.8-1.2); PT - PROTHROMBIN TIME 13.2 secs (9.9-12.6)
[2022-05-25 09:01] LABS: CREATININE 0.6 mg/dL (0.4-1.0)
[2022-05-25 09:05] LABS: PARTIAL THROMBOPLASTIN TIME 34.6 secs (24.9-33.3)
[2022-05-25] MEDS ORDERED: fentaNYL 100 MCG/2 ML VIAL ONE (09:16)
[2022-05-25] MEDS ORDERED: MIDAZOLAM 2 MG/2 ML VIAL ONE (09:16)
[2022-05-25] MEDS ORDERED: lidocaine 1% 20 ML MDV ONE ×2 (09:28→17:13)
[2022-05-25 14:34] VITALS: BP 146/85
--- NOTE | 2022-05-25 16:21 | CT Report ---
PROCEDURE: CHEST W INDICATIONS: LIVER MASS, KIDNEY MASS CONTRAST: IV CONTRAST: Optiray 320 ml: 100 PO CONTRAST: *NO PO CONTRAST TECHNIQUE: After the administration of intravenous contrast, 1 mm axial images were acquired from the pulmonary apices through the posterior costophrenic angles. Axial 5 mm soft tissue kernel reconstructions were performed as well as 8 mm axial MIP and coronal and sagittal 5 mm reformations. For radiation dose reduction, the following was used: automated exposure control, adjustment of mA and/or kV according to patient size. COMPARISON: None. FINDINGS: Image quality: Excellent. Lungs and pleura: There is a 3 mm nodule in the left upper lobe (series 4 image 91). A 3 mm nodule i s seen in the left lower lobe (series 4 image 185). No acute air space opacities. No pleural effusions or pneumothorax. Central and peripheral airways are patent and normal in caliber. Mediastinum: Heart size is normal. No pericardial effusion. Small subcentimeter mediastinal nodes a re noted, nonspecific. There is a 0.8 cm right costophrenic angle lymph node. Thoracic aorta and dian tral pulmonary arteries are normal in size. Esophagus is normal in caliber. No hiatal hernia. Bones and chest wall: No suspicious bony lesions. No vertebral body compression fractures. No axil tete or supraclavicular adenopathy by size criteria. The thyroid is normal in size and there are no incidental findings.. Abdomen: There is a large heterogeneous mass in the left hepatic lobe. Probably 3 cm cyst in the supe rior pole of the left kidney demonstrate small soft tissue nodules in nodular enhancement. IMPRESSION: 1. Small left lung nodules are present. A short-term follow-up CT is recommended in 3 months. 2. Large hepatic mass in the left hepatic lobe. Please correlate with liver biopsy result. 3. A 0.8 cm right costophrenic angle lymph node, indeterminate. Small mediastinal lymph nodes are see n, most likely benign reactive lymph nodes. 4. A 3 cm complex cyst in the superior pole of the left kidney. Please see recent CT report. Reviewed by: Connor Parsons MD on 05/25/2022 4:20 PM PDT Approved by: Connor Parsons MD on 05/25/2022 4:20 PM PDT Station ID: [id number]
--- NOTE | 2022-05-25 18:45 | CT Report ---
PROCEDURE: LIVER BX PERC Sedation analgesia for minutes. INDICATIONS: LIVER MASS TECHNIQUE: The indications, alternatives, benefits, risks, and possible complications of the procedure were comm unicated to the patient. Informed written consent from the patient was obtained and placed in the art. Continuous EKG and hemodynamic monitoring was started by trained personnel. For radiation dose reduction, the following was used: automated exposure control, adjustment of mA and/or kV according to patient size. The patient was brought to the CT suite and glazing department supervisor spiral CT imaging was performed with localization g rid. The appropriate site for percutaneous access to the biopsy target was marked, was prepped and d raped sterilely, and was infused with local anaesthesia. Under CT guidance, a core biopsy trocar and needle set was advanced to the biopsy target, and specimen(s) were obtained. The trocar and needle were then removed, and the patient was sent for post-procedure monitoring. COMPARISON: CT abdomen and pelvis dated 04/18/2022. FINDINGS: Biopsy site: Lateral segment left hepatic lobe Needle: 20 gauge biopsy needle with introducer trocar. Number of passes: 6 Medications: 1% lidocaine for local anaesthesia. IV Fentanyl and Versed for conscious sedation for 25 minutes (see nursing record). Complications: None. IMPRESSION: Successful CT-guided biopsy of left hepatic lobe mass. Reviewed by: Joao Loera MD on 05/25/2022 6:43 PM PDT Approved by: Joao Loera MD on 05/25/2022 6:43 PM PDT Station ID: [id number]
== END 2022-05-25 08:11 | disposition home or self-care (01) ==
LOC: DI 08:10
PROVIDERS: ATTEND Physician Assistant
DX: N28.89 Other specified disorders of kidney and ureter (principal); K76.89 Other specified diseases of liver; R91.8 Other nonspecific abnormal finding of lung field; R16.0 Hepatomegaly, not elsewhere classified; N28.1 Cyst of kidney, acquired
CPT/HCPCS: 36415; 47000; 71260; 82565; 85025; 85610; 85730; J7120; Q9967

== ENCOUNTER 2022-06-21 07:54 | Day surgery (SDC) | payer MEDICARE, OTHER ==
[2022-06-21] MEDS ORDERED: LACTATED RINGERS 1,000 ML IV ONE ×2 (07:59→11:00)
[2022-06-21] MEDS ORDERED: LIDOCAINE MPF 2%-EPI 1:200000 20 ML VIAL ONE (08:49)
[2022-06-21] MEDS ORDERED: BUPIVACAINE 0.25% PF 10 ML VIAL ONE (08:50)
--- NOTE | 2022-06-21 08:53 | ANESTHESIA ---
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 - Procedure port placement, EGD Vital Signs: Temp Pulse Resp BP Pulse Ox O2 Flow Rate 36.4 C L 92 20 141/110 H 100 06/21/22 08:07 06/21/22 08:07 06/21/22 08:07 06/21/22 08:07 06/21/22 08:07 Height: 5 ft 2 in Weight (kg): 70 kg Body Mass Index: 28.2 BMI Classification: Overweight - NPO >8 hours - Is Patient ?: No Home Medications and Allergies Loratadine 10 mg PO DAILY PRN 12/26/15 Magnesium 400 mg PO DAILY 12/26/15 Simvastatin 40 mg PO DAILY 12/26/15 hydroCHLOROthiazide [Hydrochlorothiazide] 25 mg PO DAILY 12/26/15 Lactobacillus Combination No.4 [Probiotic] 2 cap PO DAILY 09/10/21 Metoprolol Succinate [Kapspargo Sprinkle] 25 mg PO DAILY 09/10/21 Potassium Chloride [Klor-Con 10] 30 meq PO BID 09/10/21 Calcium Carbonate [Calcium] 600 mg PO DAILY 09/29/21 Cholecalciferol [Vitamin D3] 25 mcg PO DAILY 09/29/21 Glucos Sul 2Kcl/MSM/Chond/C/Mn [Glucosamine Chondroitin Cap] 1 each PO DAILY 09/29/21 Ibuprofen [Motrin] 600 mg PO Q6H PRN 09/29/21 Multivitamin 1 each PO DAILY 09/29/21 Omeprazole 20 mg PO DAILY 09/29/21 Vit A/Vit C/Vit E/Zinc/Copper [Preservision Areds Softgel] 1 each PO DAILY 09/29/21 Allergies/Adverse Reactions: Allergies Allergy/AdvReac Type Severity Reaction Status Date / Time Sulfa (Sulfonamide Allergy Rash Verified 09/10/21 17:57 Antibiotics) Anes History & Medical History - Anesthetic History Anesthesia Complications: reports: No previous complications - Medical History Cardiovascular: reports: Hypertension, High cholesterol Pulmonary: reports: None Gastrointestinal: reports: None Urinary: reports: None Musculoskeletal: reports: Osteoarthritis Endocrine/Autoimmune: reports: None Skin: reports: Other Smoking Status: Never smoker History of Cancer?: No - Surgical History General: reports: Appendectomy, Colonoscopy Eyes Ears Nose Throat (EENT): reports: Tonsil/Adenoidectomy Gynecologic: reports: Oophrectomy Neurologic: reports: Other (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
[2022-06-21] MEDS ORDERED: PROPOFOL 200 MG/20 ML VIAL IVP ONE ×2 (08:59→09:29)
--- NOTE | 2022-06-21 09:48 | HISTORY & PHYSICAL EXAMINATION ---
Chief Complaint - Chief Complaint Chief Complaint: here for egd and port placement History of Present Illness - History Obtained From Records Reviewed: yes History obtained from: pt Exam Limitations: none - History of Present Illness HPI Comment/Other: she has cancer of or in here liver or both. possible upper gi cancer. possible cholangiocarcinoma. She has had weight loss. Otherwise doing well. 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) HEENT: reports: Tonsil/Adenoidectomy Meds/Allgy - Home Medications Home Medications: Ambulatory Orders Medication Instructions Recorded Confirmed Loratadine 10 mg PO DAILY PRN 12/26/15 06/20/22 Magnesium 400 mg PO DAILY 12/26/15 06/20/22 Simvastatin 40 mg PO DAILY 12/26/15 06/20/22 hydroCHLOROthiazide 25 mg PO DAILY 12/26/15 06/20/22 [Hydrochlorothiazide] Lactobacillus Combination No.4 2 cap PO DAILY 09/10/21 06/20/22 [Probiotic] Metoprolol Succinate [Kapspargo 25 mg PO DAILY 09/10/21 06/20/22 Sprinkle] Potassium Chloride [Klor-Con 10] 30 meq PO BID 09/10/21 06/20/22 Calcium Carbonate [Calcium] 600 mg PO DAILY 09/29/21 06/20/22 Cholecalciferol [Vitamin D3] 25 mcg PO DAILY 09/29/21 06/20/22 Glucos Sul 2Kcl/MSM/Chond/C/Mn 1 each PO DAILY 09/29/21 06/20/22 [Glucosamine Chondroitin Cap] Ibuprofen [Motrin] 600 mg PO Q6H PRN 09/29/21 06/20/22 Multivitamin 1 each PO DAILY 09/29/21 06/20/22 Omeprazole 20 mg PO DAILY 09/29/21 06/20/22 Vit A/Vit C/Vit E/Zinc/Copper 1 each PO DAILY 09/29/21 06/20/22 [Preservision Areds Softgel] oxyCODONE [Roxicodone] 5 mg PO Q12H PRN #60 tablet 06/06/22 06/20/22 Lidocaine/Prilocain 2.5% Cream 5 applic TOP UD #1 each 06/15/22 06/20/22 [Emla 2.5% Cream] OLANZapine [Zyprexa] 5 mg PO UD #16 tablet 06/15/22 06/20/22 Prochlorperazine Maleate 10 mg PO Q6HR PRN #30 tablet 06/15/22 06/20/22 ondansetron HCL [Ondansetron HCl] 8 mg PO BID PRN #30 tablet 06/15/22 06/20/22 - Allergies Allergies/Adverse Reactions: Allergies Allergy/AdvReac Type Severity Reaction Status Date / Time Sulfa (Sulfonamide Allergy Rash Verified 09/10/21 17:57 Antibiotics) Review of Systems - Other Findings Other Findings: 10 pt ros as above otherwise unremarkable Exam - Vital Signs Reviewed Vital Signs: Yes Vital Signs: Vital Signs x48h Temp Pulse Resp BP Pulse Ox 06/21/22 08:07 36.4 C L 92 20 141/110 H 100 - Physical Exam General Appearance: positive: No acute distress, Alert Eyes Bilateral: positive: PERRL, EOMI, No scleral icterus ENT: positive: Pharynx nml, No signs of dehydration Neck: positive: No JVD, Trachea midline Respiratory: positive: No respiratory distress, Breath sounds nml Cardiovascular: positive: Regular rate & rhythm Neurologic/Psychiatric: positive: Oriented x3 Conclusion/Plan - Problem List (1) Adenocarcinoma Conclusion/Plan: plan egd to exclude upper gi source and port placement. parq held and consent obtained
[2022-06-21] MEDS ORDERED: ceFAZolin 1 GM VIAL ONE (10:24)
[2022-06-21] MEDS ORDERED: fentaNYL 100 MCG/2 ML VIAL ONE (10:30)
[2022-06-21] MEDS ORDERED: BUPIVACAINE 0.25% PF 30 ML VIAL SUBQ ONE (10:36)
[2022-06-21] MEDS ORDERED: SODIUM CHLORIDE 0.9% 100 ML BAG IV ONE (10:36)
[2022-06-21] MEDS ORDERED: ePHEDrine 50 MG/ML VIAL IVP ONE (10:42)
[2022-06-21] MEDS ORDERED: ONDANSETRON 4 MG/2 ML VIAL ONE (10:53)
--- NOTE | 2022-06-21 11:00 | OPERATIVE REPORT ---
Operative Report - General Procedure Date: 06/21/22 Planned Procedure: left subclavian power port placement Pre-Op Diagnosis: cholangiocarncinoma Procedure Performed: left subclavian power port placement fluoroscopic guidance Post Op Diagnosis: same - Procedure Note Primary Surgeon: charlotte diez Anesthesia Technique: General LMA, Local Pathology: none Estimated Blood Loss (mL): 2 Drain/Tube Type: Other (none) Indications: need for chemotherapy Findings: tip at junction of atrium and svc. good flush and flow Complications: none - Other Other Information/Narrative: The patient was properly identified brought to the operating room and placed in supine position. LMA was given as well as IV sedation. A towel roll was placed under the upper back. The patient was prepped and draped in a sterile fashion and given preoperative antibiotics. Local anesthetic was given. The left subclavian vein was easily accessed first pass with a needle. Guide wire placed and position confirmed. A subcutaneous pocket on the left upper chest was created measuring approximately 2-1/2 cm. Portacatheter tubing was then placed subcutaneous up to the venous access point. The portacatheter tubing was then easily placed with the use of a dilator peel-away sheath. The tubing was aspirated and flushed with saline. Under fluoroscopic guidance the tubing was pulled back to the junction of the atrium and the superior vena cava. The portacatheter aspirated and flushed easily assuring good position. The portacatheter was then cut to size and further assembled. The port was secured to subcutaneous tissue with 2 interrupted 4-0 Prolene sutures. The port again was aspirated and flushed now with heparin. Buried interrupted subdermal 3-0 Vicryl sutures were then placed. Skin was closed with buried interrupted and running 4-0 Monocryl subcuticular suture. Dressing was applied. The patient tolerated the procedure well was awakened and brought to recovery in good condition.
[2022-06-21] MEDS ORDERED: HYDROcod/ACETAM 5/325 MG TABLET PO PRN (11:01)
[2022-06-21 11:37] VITALS: BP 134/78
--- NOTE | 2022-06-21 12:16 | ANESTHESIA POST OP EVALUATION ---
Anesthesia Post Eval - Post Anesthesia Eval Vitals: Last Vital Signs Temp 36.6 C 06/21/22 11:36 Pulse 86 06/21/22 11:36 Resp 16 06/21/22 11:36 BP 134/78 H 06/21/22 11:36 Pulse Ox 100 06/21/22 11:36 O2 Flow Rate CV Function Including HR & BP: Stable Pain Control: Satisfactory Nausea & Vomiting: Negative Mental Status: Baseline Respiratory Status: Airway Patent Hydration Status: Satisfactory Anesthesia Complications: None
== END 2022-06-21 07:55 | disposition home or self-care (01) ==
LOC: SDS 07:54
PROVIDERS: ATTEND Surgery
DX: C22.7 Other specified carcinomas of liver (principal); K21.9 Gastro-esophageal reflux disease without esophagitis; I10 Essential (primary) hypertension
CPT/HCPCS: 36561; 43235; C1788; J7120

== ENCOUNTER 2023-01-29 14:11 | Outpatient (CLI) | payer MEDICARE, OTHER ==
--- NOTE | 2023-01-29 15:13 | Sleep Patient Instructions ---
Sleep Center Visit Summary - Patient Visit Information Reason for Visit: Initial consult for evaluation of sleep disordered breathing and other sleep issues. - Patient Instructions Instructions Attached: Sleep Study, Sleep Clinic Visit Additional Instructions: You will be completing a sleep study, either an in-lab polysomnography (PSG) or home sleep study (HST). You will follow-up in the sleep care office after the sleep study is completed to hear the results and talk about therapy, if needed. You will be called by our office staff to schedule this appointment, but you may contact us with any questions. - Clinic Information Contact: [facility] [address] [place] [address] [email or web address] T: [phone]
--- NOTE | 2023-01-29 15:27 | SLEEP CARE CONSULTATION ---
Information from patient questionnaire entered by Sheela Carpenter. I have reviewed and concur with the information entered by Sheela Carpenter. This document represents the service I personally performed and the decisions made by me, Di Tucker ARNP. History of Present Illness Service Date and Time: 01/29/2023 1411 Reason for Visit: New patient Chief Complaint: reports: Other (REFERRED BY RADIOLOGIST) Date of Onset: Usual bedtime: 10-11PM Time it takes to fall asleep: 60 MIN OR LESS Snores at night: Yes Observed to quit breathing while asleep: No Sleeps alone due to snoring: No Number of times waking at night: 1-2 Reasons for waking at night: reports: Bathroom, Other (THIRSTY). denies: Choking, Snoring, Gasping for air Toss, Turn, or Twitch while sleeping: Yes Recalls having dreams: Yes Usually gets out of bed at: 8-9AM Feels refreshed in the morning: Yes Morning headache: No Sleepy or fatigued during the day: No Ever fallen asleep while driving: No Takes day naps: No Dreams during day naps: No Prior sleep studies: No Additional HPI information: I had the pleasure of seeing ELISSA MELENDREZ today regarding the possibility of her having a sleep disorder. She was referred here by a radiologist from [facility]. She states she had 3 cancer treatments and the paperwork said she was at high risk of having sleep apnea. She states that she sleeps in a recliner at night. She states she lives with two of her sons who have told her that they have not heard her snoring or stop breathing. Her , however, has told her many times that she snores and stops breathing. But she states he is very defensive about his own snoring and apneas. She states she has a son and daughter who do have sleep apnea and using PAP machines. Another son would stop breathing when he was an infant and he does snore loudly but he is not interested in being tested. 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 Patient is and lives in [place]. Have you smoked in the past 12 months: No Alcohol use: No Caffeine use: Yes Caffeine amount and frequency: 20OZ CAN OF SODA 1-2 TIMES A WEEK UNLESS SPEACIAL EVENT Family History Family history of sleep disordered breathing: Yes Family Hx Sleep Apnea: Mother: Snoring, Sibling: Snoring, Sleep apnea - Treated (SON AND DAUGHTER ) Allergies and Home Medications Known drug allergies: Yes (SULFA PRODUCTS ) Drug allergies reviewed: Yes Home medication list reviewed: Yes Allergy and home medication list: Allergies Sulfa (Sulfonamide Antibiotics) Allergy (Verified 01/25/23 15:37) Rash Medications: Metoprolol Claritin (generic) Aspirin Magnesium Complex B vitamins Review of Systems Weight loss over past 5 years: 55 (betw December and May due to cancer) Cardiovascular: reports: high blood pressure Gastrointestinal: reports: heartburn Neurological: reports: other (NUMBNESS DUE TO NECK). denies: headaches Psychiatric: reports: other (PTSD). denies: anxiety, depression Ear/Nose/Throat: reports: nasal congestion, tonsillectomy, wisdom teeth removed Musculoskeletal: reports: joint pain Immunologic: reports: sneezing, allergies to food or environment Physical Exam Vital signs obtained and entered by: SHEELA Aguilar MA Blood Pressure: 122/68 (LEFT ARM) Cuff size: regular Heart Rate: 82 O2 Saturation: 97 Height: 5 ft 2 in Weight: 147 lb 9.6 oz Body Mass Index: 26.9 BMI Classification: Overweight Neck circumference: 13 Mouth and throat: narrow oropharynx Soft palate: long Hard palate: normal Uvula: normal Uvula visualization: 25% Mallampati Class III Tongue: normal in size Tonsils: absent bilaterally Neck: normal w/o lymphadenopathy or thyromegaly Heart: regular rate and rhythm Lungs: clear bilaterally Impression and Plan 1. Suspected Obstructive Sleep Apnea-Hypopnea Syndrome, as suggested by a history of irregular snoring and observed pauses in breathing. She has a history of arrhythmia and hypertension. Narrow oropharynx and obesity are common predisposing factors for obstructive sleep apnea-hypopnea syndrome. I recommend proceeding to polysomnography to confirm the diagnosis and to assess severity. If the patient has significant sleep disordered breathing, a manual CPAP titration study will also be performed to find the optimal treatment pressure. I informed the patient of what the sleep studies involve and after some discussion, obtained agreement to proceed. The pathophysiology of obstructive sleep apnea-hypopnea syndrome was discussed with the patient and health risks of cardiovascular and cerebrovascular disease if not treated. Risks of drowsy driving discussed in detail and patient advised to avoid long distance driving and to car repairer pullman at the first sign of drowsiness. Patient agreed to plan. * Schedule polysomnography +- manual CPAP titration study and return in 1-2 weeks after the study to discuss result and initiate therapy. * Avoid long distance driving or driving when feeling sleepy. * Avoid alcohol, sedative and muscle relaxant around bedtime. * Attempt to lose weight. * Review instructions provided by trained office staff on how to prepare for the sleep study. * Return for follow-up after sleep study completed. Counseling Topics: Weight loss health impact Visit Type: In Office Time Spent with Patient (minutes): 44 Provider Statement: I spent 100% of the Face to Face Visit with the patient with greater than 50% spent counseling the patient and coordination of care.
[2023-01-29 15:30] VITALS: BP 122/68
== END 2023-01-29 14:12 | disposition home or self-care (01) ==
LOC: SC 14:11
PROVIDERS: ATTEND Nurse Practitioner Family
DX: R06.83 Snoring (principal); I10 Essential (primary) hypertension; I49.9 Cardiac arrhythmia, unspecified; E66.3 Overweight; Z68.26 Body mass index [BMI] 26.0-26.9, adult
CPT/HCPCS: 99203; G0463; 99212

== ENCOUNTER 2023-02-07 19:32 | Outpatient (CLI) | payer MEDICARE, OTHER | END 2023-02-07 19:33 | disposition home or self-care (01) | LOC: SC 19:32 | PROVIDERS: ATTEND Nurse Practitioner Family | DX: G47.33 Obstructive sleep apnea (adult) (pediatric) (principal); G47.61 Periodic limb movement disorder; E66.3 Overweight; Z68.27 Body mass index [BMI] 27.0-27.9, adult | CPT/HCPCS: 95810 ==

== ENCOUNTER 2023-02-22 08:44 | Outpatient (CLI) | payer MEDICARE, OTHER ==
--- NOTE | 2023-02-22 09:21 | SLEEP CARE CONSULTATION ---
Information from patient questionnaire entered by Rehana Carpenter. I have reviewed and concur with the information entered by Rehana Carpenter. This document represents the service I personally performed and the decisions made by , Di Tucker ARNP. History of Present Illness Service Date and Time: 02/22/2023 0844 Initial [place] Sleepiness Scale score: 4 (01/09/23) Current [place] Sleepiness Scale score: 2 (02/22/23) Additional HPI information: ELISSA MELENDREZ returns for follow up and results of the recently performed polysomnography. Patient sleep study showed mild obstructive sleep apnea with an average AHI of 10.9 and vargas oxygen saturation of 77%. She was also found to have severe periodic leg movements of sleep that did not contribute to sleep fragmentation. I explained the pathophysiology behind obstructive sleep apnea. We then spent quite a bit of time discussing different treatment options. For mild obstructive sleep apnea, surgery and oral appliance are alternatives to nasal CPAP therapy but in moderate or severe cases, nasal CPAP is the most effective and reliable treatment. Because apnea is primarily in supine position, then positional management therapy could be effective. Methods discussed such as positioning with pillows, using a T-shirt with tennis balls in the back or commercial products that have a pillow format on back to prevent supine sleep. I reviewed the impact of weight changes on sleep apnea and strongly recommended losing weight. Patient does not drink alcohol. Patient was cautioned about risks of drowsy driving until sleepiness symptoms resolve. Patient denies drowsy driving. Sleep Study - Results Type of Sleep Study: Polysomnography (COMPLETED 02/07/23) Prior sleep studies: No Polysomnography/Home Sleep Study results: IMPRESSION: The quality of the study is good. The patient had reduced sleep efficiency due to several prolonged awakenings during the night. The sleep architecture was abnormal for sleep fragmentation and reduced amount of time spent in REM and slow wave sleep (N3). Respiratory monitoring showed mild obstructive sleep apneahypopnea (AHI = 10.9) associated with frequent arousals, oxyhemoglobin desaturation and moderate hypoxia (vargas oxygen saturation of 77%) . The respiratory events occurred almost exclusively during supine sleep (supine AHI = 34.4; non-supine = 1.41). No audible snore. There was severe periodic leg movement of sleep not contributing to the sleep fragmentation. Cardiac rhythm was normal sinus rhythm without significant arrhythmia. No abnormal behavior (parasomnia) observed during the night. Allergies and Home Medications Known drug allergies: Yes (Sulfa) Drug allergies reviewed: Yes Home medication list reviewed: Yes (no changes) Allergy and home medication list: Allergies Sulfa (Sulfonamide Antibiotics) Allergy (Verified 02/21/23 13:39) Rash Review of Systems Review of systems same as previous: Yes (no changes) Physical Exam Vital signs obtained and entered by: REHANA Aguilar MA Blood Pressure: 128/78 (LEFT ARM) Cuff size: regular Heart Rate: 67 O2 Saturation: 97 Height: 5 ft 2 in Weight: 152 lb 3.2 oz Body Mass Index: 27.8 BMI Classification: Overweight Impression and Plan 1. Obstructive Sleep Apnea-Hypopnea Syndrome, mild, with lowest oxygen saturation of 77%. Obviously this is the cause of the patients symptoms of unrefreshed sleep, and excessive daytime sleepiness. Positive pressure therapy could benefit hypertension, arrhythmia and PTSD. Since patients apnea is primarily in supine position, patient advised to try positional therapy and agreed with plan. He is also advised to lose weight as this will reduce snoring and apnea. An oral appliance can also be used for snoring but often is not covered by insurance. Follow up is scheduled for one month to check e ffectiveness. 2. Hypoxemia, moderate, with a vargas oxygen saturation of 77% and 5.1 minutes spent under 90%. Her baseline oxygen saturation was normal with an average oxygen saturation of 95%. 3. Periodic limb movement, severe, that did not fragment patients sleep. Periodic limb movement of sleep (PLMS) is characterized by episodes of repetitive limb movements that occur during sleep and usually involve the lower limbs. The etiology is unknown. Caffeine can aggravate PLMS and should be avoided. Sleep hygiene methods can also improve sleep as well as lifestyle changes such as regular exercise. Patient was advised that no treatment is needed at this time. If symptoms increase, then further evaluation is indicated. * Positional therapy * Continue to try to lose weight. * Avoid alcohol consumption near bedtime. * Avoid supine sleep * Return in one month. I will assess response to therapy at that time. Counseling Topics: Weight loss health impact Visit Type: In Office Time Spent with Patient (minutes): 29 Provider Statement: I spent 100% of the Face to Face Visit with the patient with greater than 50% spent counseling the patient and coordination of care.
--- NOTE | 2023-02-22 09:25 | Sleep Patient Instructions ---
Sleep Center Visit Summary - Patient Visit Information Reason for Visit: Sleep study followup - Patient Instructions Additional Instructions: You are to start Positional therapy. You are to sleep only on your sides to control your sleep apnea. You may use a commercial positional belt with wedges or balls to remind you to stay off your back. You may obtain these on your own, online or at medical equipment [employer]. Please follow up in the sleep care office in one month. - Clinic Information Contact: [facility] [address] [place] [address] [email or web address] T: [phone]
[2023-02-22 09:27] VITALS: BP 128/78
== END 2023-02-22 08:45 | disposition home or self-care (01) ==
LOC: SC 08:44
PROVIDERS: ATTEND Nurse Practitioner Family
DX: G47.33 Obstructive sleep apnea (adult) (pediatric) (principal); R09.02 Hypoxemia; G47.61 Periodic limb movement disorder; E66.3 Overweight; Z68.27 Body mass index [BMI] 27.0-27.9, adult
CPT/HCPCS: 99213; G0463; 99212

== ENCOUNTER 2023-03-26 08:54 | Outpatient (CLI) | payer MEDICARE, OTHER ==
--- NOTE | 2023-03-26 09:16 | Sleep Patient Instructions ---
Sleep Center Visit Summary - Patient Visit Information Reason for Visit: One month followup for Positional therapy - Patient Instructions Additional Instructions: You were here for follow up of Positional therapy. You will be continued on positional therapy. You should follow up with sleep care in 12 months. You may contact us sooner for any questions or concerns. - Clinic Information Contact: [facility] [address] [place] [id number] [email or web address] T: [phone]
--- NOTE | 2023-03-26 09:24 | SLEEP CARE CONSULTATION ---
Information from patient questionnaire entered by Sheela Carpenter. I have reviewed and concur with the information entered by Sheela Carpenter. This document represents the service I personally performed and the decisions made by , Di Tucker ARNP. History of Present Illness Service Date and Time: 03/26/2023 0854 Previous diagnosis: Mild, Obstructive Sleep Apnea-Hypopnea Syndrome AHI: 10.9 (01/2023) Reason for follow up: one month (F/U POSITIONAL) Prior sleep studies: No Type of Sleep Study: Polysomnography (COMPLETED 02/07/23) HPI additional information: ELISSA MELENDREZ was diagnosed to have mild, AHI 10.9, obstructive sleep apnea- hypopnea syndrome and returned today for Positional therapy one month follow-up. Sleep Study - Results Type of Sleep Study: Polysomnography (COMPLETED 02/07/23) Prior sleep studies: No CPAP Compliance Data Compliance data discussion: She is able to stay on her side to sleep without any issues. She is not using any positioning devices. Subjective On therapy, patient: reports: sleeping better, awakening more refreshed, more rested overall. denies: drowsiness while driving Initial [place] Sleepiness Scale score: 4 (01/09/23) Current [place] Sleepiness Scale score: 2 (03/26/23) Allergies and Home Medications Known drug allergies: Yes (Sulfa) Drug allergies reviewed: Yes Home medication list reviewed: Yes (no changes) Allergy and home medication list: Allergies Sulfa (Sulfonamide Antibiotics) Allergy (Verified 03/25/23 14:50) Rash Review of Systems Review of systems same as previous: Yes (no changes) Physical Exam Vital signs obtained and entered by: SHEELA Aguilar MA Blood Pressure: 120/62 (LEFT ARM) Cuff size: regular Heart Rate: 78 O2 Saturation: 98 Height: 5 ft 2 in Weight: 152 lb Body Mass Index: 27.8 BMI Classification: Overweight Impression and Plan 1. Obstructive Sleep Apnea-Hypopnea Syndrome, mild. Using positional therapy, the patient has better sleep quality and is more rested overall. Patient feels that she can maintain sleeping on her side. She has her sons checking on her and listening for snoring. She still sleeps in her recliner for comfort. She is feeling that she is sleeping well at night. Patient's apnea severity and rationale for treatment to reduce apnea, improve sleep quality and reduce cardiovascular and cerebrovascular events was reviewed. 2. Overweight, unspecified. Currently patients BMI is 27.8. Obesity increases the risk of apnea, CPAP pressure requirements and overall health risks especially cardiovascular and diabetes. Thus patient is advised to lose weight. -Continue positional therapy -Attempt to lose weight -Call this office if any problems -Return for follow up in 1 year, or sooner if concerns arise Counseling Topics: Sleeping position, Weight loss health impact Visit Type: In Office Time Spent with Patient (minutes): 24 Provider Statement: I spent 100% of the Face to Face Visit with the patient with greater than 50% spent counseling the patient and coordination of care.
[2023-03-26 09:26] VITALS: BP 120/62
== END 2023-03-26 08:55 | disposition home or self-care (01) ==
LOC: SC 08:54
PROVIDERS: ATTEND Nurse Practitioner Family
DX: G47.33 Obstructive sleep apnea (adult) (pediatric) (principal); E66.3 Overweight; Z68.27 Body mass index [BMI] 27.0-27.9, adult
CPT/HCPCS: 99213; G0463; 99212

== ENCOUNTER → 2023-11-04 | Outpatient (CLI) | payer MEDICARE, OTHER | LOC: PC 08:00 | PROVIDERS: ATTEND Nurse Practitioner Gerontology | DX: Z51.5 Encounter for palliative care (principal); G62.9 Polyneuropathy, unspecified; M17.0 Bilateral primary osteoarthritis of knee; F43.10 Post-traumatic stress disorder, unspecified; E83.42 Hypomagnesemia; C22.1 Intrahepatic bile duct carcinoma; Z79.899 Other long term (current) drug therapy; Z63.6 Dependent relative needing care at home | CPT/HCPCS: 99349 ==

== ENCOUNTER 2023-12-18 08:00 | Outpatient (CLI) | payer MEDICARE, OTHER | END 2023-12-18 23:59 | disposition home or self-care (01) | LOC: PC 08:00 | PROVIDERS: ATTEND Nurse Practitioner Adult Health | DX: Z51.5 Encounter for palliative care (principal); C22.1 Intrahepatic bile duct carcinoma; E83.42 Hypomagnesemia; R63.0 Anorexia; F41.9 Anxiety disorder, unspecified; Z71.89 Other specified counseling; K21.9 Gastro-esophageal reflux disease without esophagitis | CPT/HCPCS: 99215 ==

== ENCOUNTER 2023-12-31 08:00 | Outpatient (CLI) | payer MEDICARE, OTHER | END 2023-12-31 23:59 | disposition home or self-care (01) | LOC: PC 08:00 | PROVIDERS: ATTEND Nurse Practitioner Adult Health | DX: Z51.5 Encounter for palliative care (principal); C22.1 Intrahepatic bile duct carcinoma | CPT/HCPCS: 99426 ==

== ENCOUNTER 2024-01-02 11:26 | Outpatient (CLI) | payer MEDICARE, OTHER ==
--- NOTE | 2024-01-03 08:45 | Ultrasound Report ---
PROCEDURE: Abdominal Paracentesis INDICATIONS: ASCITES TECHNIQUE: The indications, alternatives, benefits, risks, and complications of the procedure were explained to the patient. Written informed consent was obtained and placed in the chart. The abdomen and pelvis were examined sonographically, and an appropriate site was chosen for paracentesis. The skin was pre pared and draped in the usual sterile fashion, and 1% lidocaine was infiltrated from the skin down th rough the peritoneal surface. A 19-gauge catheter-covered needle was then introduced into the perito jennifer space, the catheter was advanced and the needle was withdrawn, and thereafter peritoneal fluid w as withdrawn. The catheter was then removed and a dressing was applied. The fluid was discarded if the clinician did not order diagnostic testing of the fluid. COMPARISON: CT abdomen and pelvis with, 12/10/2013, 10/18/2013. FINDINGS: Access site: Right lower quadrant Needle: One-Step centesis catheter with introducer needle. Fluid volume and description: 4.5 L; clear Fluid sent for diagnostic testing: Not requested by referring physician. Medications: 1% lidocaine for local anaesthesia. Complications: None. IMPRESSION: Successful ultrasound-guided paracentesis. Reviewed by: Connor Parsons MD on 01/03/2024 8:44 AM PDT Approved by: Connor Parsons MD on 01/03/2024 8:44 AM PDT Station ID: [id number]
== END 2024-01-02 11:27 | disposition home or self-care (01) ==
LOC: DI 11:26
PROVIDERS: ATTEND Nurse Practitioner Adult Health
DX: R18.8 Other ascites (principal)
CPT/HCPCS: 49083

== ENCOUNTER 2024-01-02 13:10 | Outpatient (CLI) | payer MEDICARE, OTHER | END 2024-01-02 23:59 | disposition home or self-care (01) | LOC: PC 13:10 | PROVIDERS: ATTEND Nurse Practitioner Adult Health | DX: Z51.5 Encounter for palliative care (principal); C23 Malignant neoplasm of gallbladder; R18.0 Malignant ascites; R63.0 Anorexia; Z66 Do not resuscitate; G62.9 Polyneuropathy, unspecified; F41.9 Anxiety disorder, unspecified; F43.10 Post-traumatic stress disorder, unspecified; Z71.89 Other specified counseling | CPT/HCPCS: 99215 ==